=== PATIENT | female | born 1950 | race Caucasian/White ===

== ENCOUNTER → 2017-12-11 | Outpatient (CLI) | payer MEDICARE, OTHER ==
[~2017-12-11] MED LIST: ACTONEL30 MG; AUGMENTIN 875875 MG PO; CRESTOR40 MG; HYDRALAZINE 2525 MG PO; HYDROCODON-ACE1 EAC7 PO; PREDNISONE50 MG PO
== END ==
LOC: M.RAD 12-10 15:30
DX: M85.89 Other specified disorders of bone density and structure, multiple sites (principal); Z78.0 Asymptomatic menopausal state